=== PATIENT | male | born 2000 | race African-American/Black ===

== ENCOUNTER 2021-04-05 21:15 | Emergency (ER) | payer OTHER ==
[~2021-04-05] VITALS: Ht 172.7 cm; Wt 63.5 kg
[~2021-04-05 21:15] MED LIST: IBUPROFEN 600600 M1 PO; NOHOMEMEDICATIONS
[2021-04-05] MEDS ORDERED: ADDERALL 20 MG20 MG (21:41)
[2021-04-05] MEDS ORDERED: FLEXERIL PO (22:19)
[2021-04-05 22:41] VITALS: BP 132/76
== END 2021-04-05 22:42 | disposition home or self-care (01) ==
LOC: M.ERS 21:15
DX: M62.830 Muscle spasm of back (principal); Z79.899 Other long term (current) drug therapy; V89.2XXA Person injured in unspecified motor-vehicle accident, traffic, initial encounter; Y93.89 Activity, other specified; Y92.89 Other specified places as the place of occurrence of the external cause; Y99.8 Other external cause status